=== PATIENT | female | born 1950 | race American Indian/Alaskan Native ===

== ENCOUNTER 2018-04-21 10:11 | Emergency (ER) | payer MEDICARE ==
[2018-04-21 11:03] VITALS: BP 124/60
--- NOTE | 2018-04-21 12:32 | Emergency Department Report ---
ED Back Pain/Injury HPI - General Chief Complaint: Back Pain/Injury Stated Complaint: BACK PAIN Time Seen by Provider: 04/21/18 12:21 Source: patient Limitations: No Limitations - History of Present Illness Initial Comments: This is a 67-year-old -[place]yp[place] female who presents with right upper back pain for 2 days. Patient reports pain is 10 out of 10 on pain scale, sharp intensity, and worse with movement. Patient admits to history of chronic back pain which is usually in lower back. Patient denies any recent injury. She is currently taking Flexeril and ibuprofen 800 mg from primary care provider. Patient reports taken one Flexeril last night and felt better but pain returned this morning so she decided to come in for evaluation. Patient reports pain remains in right upper back up under her shoulder blade and worse with movement. She denies numbness or tingling, erythema, swelling, chest pain , and recent injury. MD Complaint: back pain (left sided upper back pain) Onset/Timin -: days(s) Similar Symptoms Previously: Yes Place: home Radiation: none Severity: mild Severity scale (0 -10): 2 Quality: sharp, aching Consistency: intermittent Improves With: medication (muscle relaxers) Worsens With: movement Context: unknown Associated Symptoms: denies: numbness, difficulty urinating, incontinence, fever /chills, rash Treatments Prior to Arrival: NSAIDS, other medications (Flexeril) - Related Data Allergies Allergy/AdvReac Type Severity Reaction Status Date / Time Sulfa (Sulfonamide AdvReac Itching Verified 04/21/18 11:03 Antibiotics) ED Review of Systems ROS: Stated complaint: BACK PAIN Other details as noted in HPI Constitutional: denies: chills, fever Respiratory: denies: cough, shortness of breath, wheezing Cardiovascular: denies: chest pain, palpitations Gastrointestinal: denies: abdominal pain, nausea, diarrhea Musculoskeletal: back pain (right upper back pain under shoulder blade). denies : joint swelling, arthralgia Skin: denies: rash, lesions Neurological: denies: headache, weakness, numbness, paresthesias Psychiatric: denies: anxiety, depression ED Back Pain Physical Exam - Exam General: Vital signs noted. No distress. Alert and acting appropriately. Back/Abdomen: Yes Perithoracic Tenderness (trapezius tenderness on right on deep palpation), No Abdominal Tenderness, No Perilumbar Tenderness, No Sacroiliac Tenderness, No Flank Tenderness, No Straight Leg Raise Pain Neuro: Yes Normal Sensation, Yes Normal DTR's, Yes Normal Gait, No Motor Weakness ED Course Vital Signs 04/21/18 10:59 Temperature 98.4 F Pulse Rate 85 Respiratory 16 Rate Blood Pressure 124/60 O2 Sat by Pulse 99 Oximetry ED Medical Decision Making - Medical Decision Making This is a 67 y.o. female presents with right upper back pain for 2 days. Patient was examined by me. Patient has chronic low back pain and no other past medical history. Vitals are normal and patient is in no acute distress. Ordered X-ray of C-spine and pending. Patient signed AMA forms and left AGAINST MEDICAL ADVICE. Critical care attestation.: If time is entered above; I have spent that time in minutes in the direct care of this critically ill patient, excluding procedure time. ED Disposition Clinical Impression: Left against medical advice Disposition: [id number]-07 LEFT AGAINST MED ADVICE Is pt being admited?: No Condition: Stable Referrals: MANDY KILGORE MD [Primary Care Provider] - 3-5 Days
== END 2018-04-21 12:40 | disposition left against medical advice (07) ==
LOC: ED 10:11
DX: M54.6 Pain in thoracic spine (principal); Z88.2 Allergy status to sulfonamides
CPT/HCPCS: 99282